=== PATIENT | male | born 1945 | race Caucasian/White ===

== ENCOUNTER 2021-05-11 13:15 | Emergency (ER) | payer OTHER, MEDICARE ==
--- NOTE | 2021-05-11 14:11 | EDM.PDOC ---
ED HPI GENERAL MEDICAL PROBLEM - General Chief Complaint: General Stated Complaint: R Eye Discomfort Time Seen by Provider: 05/11/21 13:55 Source of Information: Reports: Patient History Limitations: Reports: No Limitations - History of Present Illness INITIAL COMMENTS - FREE TEXT/NARRATIVE: Mr. Davis is a 75 year old male that presents to the ED with an eye issue. States that he had cataract surgery to the right eye at the [facility] in [employer] on April 30. His follow-up appointment was uneventful. Yesterday morning he began to have visual disturbances in which he described it like "looking through a screen door." States his vision has gotten worse today and is "blurry" and barely able to make out the shape of his hand. States is having periods of throbbing pain and has taken Tylenol with some relief. Is able discern light. Has been using his prescription eye drops. Denies injury. Vision in left eye is "ok" Duration: Day(s): (1) Location: Reports: Other (right eye) Quality: Reports: Throbbing Severity: Mild Improves with: Reports: Medication Worsens with: Reports: None Associated Symptoms: Reports: Other (blurred vision) - Related Data Allergies Allergy/AdvReac Type Severity Reaction Status Date / Time amlodipine Allergy Cannot Verified 05/11/21 13:17 Remember oxycodone Allergy Cannot Verified 05/11/21 13:17 Remember Home Meds: Home Meds Aspirin [Ecotrin EC] 162 mg PO DAILY 03/27/17 [History] Enalapril Maleate 20 mg PO DAILY 03/27/17 [History] Multivitamin with Minerals [Multivitamins with Minerals] 1 each PO DAILY 03/27/17 [History] Naproxen 250 mg PO BID 03/27/17 [History] Simvastatin [Zocor] 40 mg PO BEDTIME 03/27/17 [History] Past Medical History HEENT History: Reports: Cataract Cardiovascular History: Reports: High Cholesterol, Hypertension - Past Surgical History HEENT Surgical History: Reports: Cataract Surgery Social & Family History - Family History Family Medical History: No Pertinent Family History - Tobacco Use Tobacco Use Status *Q: Never Tobacco User Second Hand Smoke Exposure: No - Caffeine Use Caffeine Use: Reports: None - Recreational Drug Use Recreational Drug Use: No ED ROS GENERAL - Review of Systems Review Of Systems: See Below Constitutional: Reports: No Symptoms. Denies: Fever, Chills HEENT: Reports: Eye Discharge, Eye Pain, Glasses, Vision Change (right eye) Respiratory: Reports: No Symptoms. Denies: Shortness of Breath Cardiovascular: Reports: No Symptoms. Denies: Chest Pain Endocrine: Reports: No Symptoms GI/Abdominal: Denies: Abdominal Pain, Nausea : Reports: No Symptoms Musculoskeletal: Reports: No Symptoms Skin: Reports: No Symptoms Neurological: Reports: No Symptoms Psychiatric: Reports: No Symptoms Hematologic/Lymphatic: Reports: No Symptoms Immunologic: Reports: No Symptoms ED EXAM, GENERAL - Physical Exam Exam: See Below General Appearance: Alert, WD/WN, No Apparent Distress Eye Exam: Right Eye: Vision Changes (vision change of right), Other (sclera red, pupil constricted, discharge noted), Left Eye: PERRL (right pupil sluggish) Head: Atraumatic, Normocephalic Respiratory/Chest: No Respiratory Distress, Lungs Clear, Normal Breath Sounds, No Accessory Muscle Use Cardiovascular: Normal Peripheral Pulses, Regular Rate, Rhythm, No Gallop, No Murmur, No Rub Neurological: Alert, Oriented, CN II-XII Intact, Normal Cognition Course - Vital Signs Last Recorded V/S: Last Vital Signs Temp 97.7 F 05/11/21 13:32 Pulse 84 05/11/21 13:32 Resp 16 05/11/21 13:32 BP 154/72 H 05/11/21 13:32 Pulse Ox 98 05/11/21 13:32 - Re-Assessments/Exams Free Text/Narrative Re-Assessment/Exam: This is a 75 year old male that presents to the ED [facility]. Recent cataract surgery of right eye April 30. Began having blurred vision and vision changes yesterday morning. Due to history and physical findings [facility] was [facility] available and approved to speak with [facility]. Spoke with a Dr Echeverria, ophthalomologist, and she would like eye pressures to determine treatment plan. Attempted to find services in [place] for this assessment and they are unavailable. Contacted Dr. Lawson, director of officiating, at [facility] in [place] and he is will to assess pressures and in-turn speak with Dr. Echeverira with treatment plan. Patient is agreeable with this plan and has a ride to [place]. Will discharge patient to have further eye evaluation in [place]. Departure - Departure Time of Disposition: 14:14 Disposition: Home, Self-Care 01 Condition: Good Clinical Impression: Vision changes - Discharge Information *PRESCRIPTION DRUG MONITORING PROGRAM REVIEWED*: Not Applicable *COPY OF PRESCRIPTION DRUG MONITORING REPORT IN PATIENT ANURADHA: Not Applicable Forms: ED Department Discharge Additional Instructions: 1. Go to [facility] in [place], Dr. Lawson with assess and check eye pressure. Appointment for 3:15 to 3:[address] Lawson has been given contact information for Dr. Echeverria at [facility] ophthalmology. Sepsis Event Note (ED) - Evaluation Sepsis Screening Result: No Definite Risk - Focused Exam Vital Signs: Vital Signs Temp Pulse Resp BP Pulse Ox 05/11/21 13:32 97.7 F 84 16 154/72 H 98
== END 2021-05-11 14:46 | disposition home or self-care (01) ==
LOC: CC.ED 13:15
DX: H53.8 Other visual disturbances (principal); I10 Essential (primary) hypertension; E78.00 Pure hypercholesterolemia, unspecified; Z88.8 Allergy status to other drugs, medicaments and biological substances; Z88.5 Allergy status to narcotic agent; Z79.82 Long term (current) use of aspirin; Z79.899 Other long term (current) drug therapy
CPT/HCPCS: 99283

== ENCOUNTER 2023-12-24 15:28 | Emergency (ER) | payer MEDICARE ==
[2023-12-24] MEDS: Lidocaine 1% with EPINEPHrine 1:100,000 10 ML MDV INJECT ONE (15:37)
[2023-12-24] MEDS: Diphtheria,Pertussis(Acell),Tetanus Vaccine 0.5 ML Syringe IM ONE (15:38)
[2023-12-24] MEDS: Bacitracin Oint 1 GM U/D Packet TOP ONE (15:38)
[2023-12-24 15:47] VITALS: BP 132/81; PULSE 76
== END 2023-12-24 16:12 | disposition home or self-care (01) ==
LOC: CC.ED 15:28
DX: S81.812A Laceration without foreign body, left lower leg, initial encounter (principal); E78.00 Pure hypercholesterolemia, unspecified; I10 Essential (primary) hypertension; Z79.82 Long term (current) use of aspirin; Z79.899 Other long term (current) drug therapy; W27.0XXA Contact with workbench tool, initial encounter
CPT/HCPCS: 12002; 90471; 90715; 99282-25; J3490